=== PATIENT | female | born 1945 | race Hispanic/Latino ===

== ENCOUNTER 2016-10-24 09:07 | Day surgery (SDC) | payer MEDICARE, MEDICAID ==
--- NOTE | 2016-10-23 11:32 | PCM.ANEPRE ---
Anesthesia Pre-Op Review Reason for Review: DM, Anemia Anesthesia Recommendations: Proceed with Procedure Additional Comments 71 y.o female with DM. Per clinic notes appears to be medically optimized. Xu Aguilar DO October 23, 2016 11:32
[2016-10-24] VITALS (15 sets, daily range): BP systolic 91–156; BP diastolic 54–72; PULSE 70–95; RESP 10–18; O2SAT 93–97
[~2016-10-24] VITALS: Ht 152.4 cm; Wt 58.7 kg
[2016-10-24] MEDS: Lactated Ringer's 1,000 ML IV SCH ×3 (05:00→12:46)
[~2016-10-24 09:07] MED LIST: AMLO5TAB2 PO; AMT25T PO; ASPI-628 PO; CHOL200025 PO; CeFAZolin Inj 2 GM in IV Premix 1 EACH IV ONE; GLIP5TAB3 PO; HYDR-4003 PO; LISI40TA PO; LOVA40TA PO; METF10002 PO; Phenazopyridine 97.5 mg Tablet PO ONE; RANI150C4 PO
[2016-10-24] MEDS ORDERED: Furosemide 10 mg/mL 4 mL Inj ONE (09:08)
[2016-10-24] MEDS ORDERED: Propofol 10,000 mCg/mL 20 mL Inj ONE (09:08)
[2016-10-24] MEDS ORDERED: Ondansetron 2 mg/mL 2 mL Inj ONE (09:08)
[2016-10-24] MEDS ORDERED: Phenylephrine 10,000 mCg/mL Inj ONE (09:08)
[2016-10-24] MEDS ORDERED: Phenazopyridine 97.5 mg Tablet ONE (10:15)
[2016-10-24 11:02] LABS: Mean Corpuscular Hemoglobin 27.6 pg (27.0-35.0)
--- NOTE | 2016-10-24 11:22 | PCM.HPANE ---
Patient Data Date of Service: October 24, 2016 Surgeon Admitting Provider: Attending Provider:Yonathan Bailey MD Primary Care Physician:To Other Provider:Sarah Rodriguez Anesthesia Reason for Visit Uterovaginal Prolapse, Cystocele, Rectocele, Incon Ht/WT & BMI Height (Feet): 5 Height (Inches): 0.00 Weight (Kilograms): 58.500 Body Mass Index 25.00 Allergies Coded Allergies: No Known Allergies (Verified , 08/24/12) Past Anesthesia History Anesthesia History: Denies:: Anesthesia Reactions, Fam Anesthesia Reaction, Fam Malignant Hypertherm, Malignant Hyperthermia Diabetes History Hx Diabetes?: Yes Type of Diabetes: Type II Glycemic Control: Oral Medication Current Bedside Blood Glucose: 158 MRSA MRSA: No Medications Blood Thinner: Aspirin Last Dose Blood Thinner: Oct 16, 2016 Hypertension Medication: Yes (Amlodipine, lisinopril) Home Meds Incl Beta Luisana: No Reported Medications Cholecalciferol (Vitamin D3) (Vitamin D3)2,000 Unit Tablet2,000 Unit PO DAILY 10/23/16 Ranitidine 150 Mg [id number] Mg PO BID PRN For Dyspepsia or Heartburn Ref 0 10/23/16 Glipizide ER (Glucotrol XL)5 Mg Tablet5 Mg PO DAILY 10/23/16 Hydrocodone-Acetaminophen 5-325 mg 1 Each Tablet1 Each PO Q4 PRN For Pain Ref 0 06/05/14 Metformin 1,000 Mg Tablet1,000 Mg PO BIDWM 30 Days Ref 0 06/05/14 Aspirin (Aspir 81)81 Mg Tablet.dr81 Mg PO DAILY Ref 0 06/05/14 Amlodipine 5 Mg Tablet5 Mg PO DAILY 30 Days Ref 0 06/05/14 Lisinopril 40 Mg [id number] Mg PO DAILY 30 Days Ref 0 06/05/14 Amitriptyline 25 Mg Tab25 Mg PO HS Ref 0 06/05/14 Lovastatin 40 Mg Tuiqpk25 Mg PO HS #30 TABLET Ref 0 06/05/14 Discontinued Reported Medications Amitriptyline-Expunged Drug, Do Not Renew! 25 Mg Zlsfvz22 Mg PO DAILY 08/25/12 Lisinopril-Expunged Drug, Do Not Renew! 20 Mg Tjzpzw43 Mg PO DAILY 08/25/12 Lovastatin-Expunged Drug, Do Not Renew! 40 Mg Bmvitt03 Mg PO HS 08/25/12 Metformin-Expunged Drug, Do Not Renew! 500 Mg Tablet1,000 Mg PO BIDWM 08/25/12 Discontinued Scripts Sulfamethoxazole/Trimethoprim (Bactrim DS)1 Each Tablet1 Tab PO BID #8 Prov:Jesi Tafoya DO 08/26/12 History History of ENT Problems?: Yes HEENT History: Denies:: Abnormal Airway Difficult Intubation TMJ Denture Type: None Teeth Condition: Missing Teeth (right upper molar, nothing loose) Other HEENT Pertinent History: Diabetic retinopathy Hx of Heart Problems?: Yes Cardiovascular History: Positive for:: Hypertension Denies:: Cardiac Surgery Chest Pain Congestive Heart Failure Edema Heart Murmur Irregular Heartbeat Pacemaker Thrombophlebitis Other Cardiac History: Pt has chronic anemia Hx of Respiratory Problem?: No Respiratory History: Denies:: Asthma COPD Chest Surgery Cough Dyspnea Emphysema Hemoptysis Pneumonia Tuberculosis Hx Neurologic Problems?: Yes Neurological History: Positive for:: Dizziness (today) Headaches Denies:: Alzheimer's Disease CVA Dementia Parkinson's Disease Seizures Other Neurological Pertinent: Diabetic neuropathy in feet, denies any weakness Hx of GI Problems?: Yes Other GI Pertinent History: Constipation; hx of gastritis. Hx of Problems?: Yes Genitourinary History: Positive for:: Urinary Tract Infection Denies:: HX of Hemodialysis Kidney Stones HX of Peritoneal Dialysis: No Other Pertinent History: Cystocele and uterovaginal prolapse. Female Hx: Denies:: Currently Hx Musculoskeletal Problems?: No Musculoskeletal History: Denies:: Back Injury Joint Replacement Musculoskeletal Trauma Hx of Psycho/Social Problems?: Yes Psycho Social History: Positive for:: Hx Depression Denies:: Anxiety Bipolar Disorder Suicide Attempt Hx Surgeries?: Yes (Tubal, c section x2, hernia repair, right leg vein "exploded" (varicose)) Hx Any Other Health Problems?: Yes Other History: Positive for:: Hospitalization (Childbirth) Denies:: Cancer Endocrine Disease Thyroid Disease History Blood Transfusions: Positive for:: Accept Blood Products? Denies:: Blood Transfusions Hx Diabetes: YesBedside Blood Glucose: 158 Hx Alcohol Use: NoHx Substance Use: No Smoking Status: Never Smoker Have You Smoked inLast 12 mo: No Stop/Bang S-Snoring: Do You Snore Loudly: Yes T-Tired: feel tired, fatigued: No O-Obsered: Observed not breath: No P-Blood Pressure: treated: Yes B- Body Mass Index > 35 kg/m2: No A- Age over 50: Yes N- Neck Large Circumference: No G- Gender Male: No ROXANN Total Score: 3 ROXANN Risk Assessment: High Risk, =/>3 Yes ROXANN Category 4 OutPt Procedure: Yes Risk Assessment Category Category 1A: Patient has history of documented sleep apnea, and HAS NOT received any narcotic, sedative or anesthesia administration during this stay. Category 1B: Patient has history of documented sleep apnea, and HAS received any narcotic , sedative or anesthesia administration during this stay Category 2: Patient has SUSPECTED Obstructive Sleep Apnea, and HAS received any narcotic , sedative or anesthesia administration during this stay. Category 3: Patient has SUSPECTED Obstructive Sleep Apnea and HAS NOT received narcotic, sedative or anesthesia administration during this stay. Category 4: Outpatient in Procedural Areas with known sleep apnea or who screen positive for High Risk via the STOP/BANG questionnaire. Exam Exam Vital Signs Vital Signs Date Time Temp Pulse Resp B/P Pulse Ox O2 Delivery O2 Flow Rate FiO2 10/24/16 09:38 36.3 81 16 156/63 97 Room Air General Appearance: Alert, Oriented X3, Cooperative, No Acute Distress HEENT/AIRWAY: MP 2, Neck Movement (from), Other (tmd 3 fb) Lungs: Clear to Auscultation, Normal Air Movement Heart: Exam Unremarkable, Regular Rate/Rhythm, No Murmurs/Rubs/Gallops Meds/Labs/Diagnostics Admission Meds Current Medications Lactated Ringer's (Lr) 1,000 ml @ 120 mls/hr Q8H20M IV Last administered on t 10:36; Start 10/24/16 at 05:00; Stop 10/24/16 at 13:19 Bedside Blood Glucose: 158 Labs Test 10/24/16 10:45 White Blood Count 5.6th/mm3 (3.8-10.1) Red Blood Count 4.09mil/mm3 (3.90-5.20) Hemoglobin 11.3g/dL (12.0-15.6) Hematocrit 35.6% (35.0-46.0) Mean Corpuscular Volume 87.0fL (81-100) Mean Corpuscular Hemoglobin 27.6pg (27.0-35.0) Mean Corpuscular Hemoglobin Concent 31.7% (32.0-37.0) Red Cell Distribution Width 13.4% (12.3-15.4) Platelet Count 319bil/L (150-400) Sodium Level 136mEq/L (134-144) Potassium Level 4.6mEq/L (3.5-5.2) Chloride Level 97mEq/L (97-108) Carbon Dioxide Level 26mmol/L (18-29) Blood Urea Nitrogen 19mg/dL (8-27) Creatinine 1.07mg/dL (0.57-1.00) Estimat Glomerular Filtration Rate 73mL/min (>59) Glucose Level 176mg/dL (60-99) Calcium Level 8.5mg/dL (8.5-10.1) Plan Impression Patient chart reviewed, patient interviewed and anesthestic plan with risks, benefits, and alternatives discussed, and informed consent obtained. NPO per Anesth. Guidelines: Yes ASA Physical Status: ASA2 Mod Systemic Disease Anesthetic Plan: GA, SAB (with intrathecal morphine for postop analgesia) Bene/Risks/Altern/Consents: Yes HP Complete Prior to Induction: Yes Scout Celeste MD October 24, 2016 11:22
[2016-10-24] MEDS ORDERED: Morphine PF 1 mg/mL 10 mL Inj ONE (11:59)
[2016-10-24] MEDS ORDERED: Lactated Ringer's 1,000 ML IV SCH (12:41)
[2016-10-24] MEDS ORDERED: Lactated Ringer's 500 ML IV PRN (12:41)
[2016-10-24] MEDS ORDERED: Labetalol 5 mg/mL 4 mL Inj IV PRN (12:45)
[2016-10-24] MEDS ORDERED: fentaNYL-PF 50 mCg/mL 2 mL Inj IVPUSH PRN (12:45)
[2016-10-24] MEDS ORDERED: hydrOXYzine Inj 50 MG/1 mL SDV IM PRN (12:45)
[2016-10-24] MEDS ORDERED: Phenylephrine 10,000 mCg/mL Inj IVPUSH PRN (12:45)
[2016-10-24] MEDS ORDERED: EPHEDrine Sulfate 50 mg/mL Inj IVPUSH PRN (12:45)
[2016-10-24] MEDS ORDERED: HYDROmorphone 1 mg/mL Inj IVPUSH PRN (12:45)
[2016-10-24] MEDS ORDERED: hydrALAZINE 20 mg/mL Inj IVPUSH PRN (12:45)
[2016-10-24] MEDS ORDERED: Atropine 0.4 mg/mL Inj IVPUSH PRN (12:45)
[2016-10-24] MEDS ORDERED: EPHEDrine Sulfate 50 mg/mL Inj IM PRN (12:45)
[2016-10-24] MEDS ORDERED: MetoCLOpramide 5 mg/mL 2 mL Inj IVPUSH PRN (12:45)
[2016-10-24] MEDS ORDERED: Ondansetron 2 mg/mL 2 mL Inj IVPUSH PRN ×2 (12:45→16:25)
[2016-10-24] MEDS ORDERED: Lactated Ringer's 1,000 ML IV ONE (15:57)
[2016-10-24] MEDS ORDERED: Alum-Mag Hydrox-Simeth 30 mL Suspension PO PRN (16:25)
[2016-10-24] MEDS ORDERED: diphenhydrAMINE 25 mg Capsule PO PRN (16:25)
[2016-10-24] MEDS ORDERED: Ketorolac 15 mg/mL Inj IVPUSH PRN (16:25)
[2016-10-24] MEDS ORDERED: Acetaminophen IV 1,000 MG in IV Premix 1 EACH IV SCH (16:25)
[2016-10-24] MEDS ORDERED: Non-Formulary Medication (Ranitidine 150 MG) PO PRN (16:30)
[2016-10-24 17:05] LABS: APPEARANCE,URINE CLEAR (CLEAR,HAZY); COLOR,URINE YELLOW (YELLOW); OCCULT BLOOD,URINE NEGATIVE (NEGATIVE); PH,URINE 7.5 (5.0-8.0); UROBILINOGEN,URINE NORMAL (NORMAL)
--- NOTE | 2016-10-24 18:57 | NUR ---
Post op note- Patient arrived to [facility] at 1835 from PACU. Sedated, but opens eyes with stimuli. Denies pain and nausea. Wiley cath draining orange urine. Dressing at pubis is dry and intact. O2 on at 3 liters-Spo2 93-94%. Oriented to room, call light,etc. Family at bedside.
[2016-10-24] MEDS: MetoCLOpramide 5 mg/mL 2 mL Inj IVPUSH PRN (19:28)
[2016-10-24] MEDS: 0.9% Sodium Chloride 1,000 ML IV SCH (20:03)
[2016-10-24] MEDS: Insulin Human REGular 300 Unit/3 mL Inj SUBQ SCH (21:22)
--- NOTE | 2016-10-24 22:52 | PCM.ANEP1 ---
Post Anesthesia Phase 1 PACU Phase 1 Assessment Date of Service: October 24, 2016 Vital Signs Vital Signs Date Time Temp Pulse Resp B/P Pulse Ox O2 Delivery O2 Flow Rate FiO2 10/24/16 20:15 Supplement Oxygen 10/24/16 19:43 72 95 10/24/16 18:39 Supplement Oxygen 10/24/16 18:32 36.6 73 16 130/72 93 Nasal Cannula 3.00 10/24/16 18:03 11 94 10/24/16 18:00 36.2 80 11 121/60 94 Nasal Cannula 3 10/24/16 17:45 76 10 109/64 95 Nasal Cannula 3 10/24/16 17:30 76 10 104/57 95 Nasal Cannula 3 10/24/16 17:15 77 10 105/61 95 Nasal Cannula 3 10/24/16 17:00 35.8 76 10 114/57 95 Nasal Cannula 3 10/24/16 16:45 89 10 107/61 96 Simple Mask 8 10/24/16 16:40 90 10 91/57 96 Simple Mask 8 10/24/16 16:35 93 12 96/58 95 Simple Mask 8 10/24/16 16:30 94 12 106/56 93 Simple Mask 8 10/24/16 16:25 36.1 95 12 111/63 94 Simple Mask 8 Anesthetic Administered: GA Level of Alertness: Sleepy, easy to arouse ALEXIS's with Equal Strength: Yes Pain: No Nausea or Vomiting: No Oxygen Delivery: Nasal Cannula Lungs: Clear to Auscultation, Normal Air Movement Dermatome Level: Full Sensation Summary Patient sleepy in PACU but arousable. Able to take deep breaths and cough. Complications: No Follow up Care: No Patient Instructions Provided: Yes Scout Celeste MD October 24, 2016 22:52
--- NOTE | 2016-10-24 23:09 | PCM.SURGOP ---
Surgical Operative Report Date of Service: October 24, 2016 Pre Operative Diagnosis 1. Uterovaginal prolapse, incomplete N81.2 (618.2): 2. Cystocele and rectocele 3. Stress incontinence in female N39.3 (625.6): Intrinsic sphincter deficiency Post Operative Diagnosis 1. POPQ stage 2 Uterine prolapse, 2. POPQ stage 2 Cystocele and rectocele; deficient pubovesical fascia 3. Stress incontinence in female; Intrinsic sphincter deficiency Procedure: 1. vaginal hysterectomy with Left Salpingoophorectomy. 2. anterior repair with Xenform biologic graft augmentation. 3. posterior repair 4. high uterosacral ligament vaginal vault suspension, cystoscopy and enterocele repair 5. TVT retropubic sling and cystoscopy Surgeon and Historical Guide: Surgeon: Yonathan Bailey MD Assistants: Varinder Dixon MD Indication for Procedure Her assessment to date includes: 1. Uterovaginal prolapse, incomplete N81.2 (618.2): 2. Vaginal atrophy N95.2 (627.3): 3. Stress incontinence in female N39.3 (625.6): The patient is not interested in a pessary. The patient is a candidate for surgical prolapse management in the form of vaginal hysterectomy with possible BSO, anterior repair with possible biologic graft augmentation, posterior repair, high uterosacral ligament vaginal vault suspension, enterocele repair, and TVT retropubic sling. She has been granted medical/cardiac clearance (refer to letter from her GP). The patient signed the consent form. She agreed with the risks, benefits, and alternatives to surgery. The risks included but not limited to recurrence or persistence of prolapse, recurrence of persistence of incontinence, development of voiding dysfunction, development of urinary urgency, urgency incontinence, frequency, and need for intermittent self-catheterization or prolonged indwelling catheterization, injury to other organs including bladder, bowel, nerves or blood vessels. Need for blood transfusion, need for temporary colostomy or urinary stenting. Development of vaginal scarring, dyspareunia, defecatory dysfunction, recurring pain, hematoma formation, urinary tract infection, cellulitis, necrotizing fascitis, and medical risks including myocardial infarction, stroke or VTE. She also understood the FDA warnings associated with the use of vaginal mesh (dysparunia, vaginal erosion, erosion into bowel/bladder/urethra, requiring further surgery to correct these complications). The patient understood the risks and benefits and consented to surgery. This was done with a public policy professor, our SADIE Norah. Findings: see dictation Procedure Details SURGICAL TECHNIQUE: The patient was brought to the operating room and was placed under general anesthesia. She was prepped and draped in the normal fashion for vaginal surgery with the legs in Yellofin stirrups. She was given a dose of IV ancef intraoperatively. She received 200 mg of oral pyridium 30 min prior to surgery. 1. Vaginal Hysterectomy and left salpingoophorectomy: Lidocaine 0.5% with 1:200 ,000 of epinephrine was infiltrated pericervically. A pericervical incision was made with a scalpel. Anteriorly, the bladder was sharply dissected off the cervix. Posteriorly, the cul de sac was entered with Sharp dissection. The bowels were packed with a mini-laparotomy sponge. The uterosacral ligaments were bilaterally clamped, divided and then tied in a transfixion fashion with 0-vicryl suture. Anteriorly, the Uterovesical peritoneum was entered with sharp dissection and the bladder was retracted upward with a right-angle retractor. The uterine vessels were then coagulated, and ligated using the Ligasure Impact System. The uterine body was delivered posteriorly. The utero-ovarian ligaments were clamped bilaterally, coagulated, ligatated and then tied using 0-Vicryl suture. The ovaries and tubes appeared normal. Next we proceeded with Salpingoophorectomy. The left ovary and tube were grasped with Any clamp. A hysterectomy Clamp was placed along the vascular base. This was coagulated, then ligated with Ligasure Impact. The Pedicle was then tied using 0-vicryl suture. The right tube and ovary appeared normal but were located deep in the pelvis. Therefore we decided to leave them in situ. The uterus/cervix, left tube and ovary were sent to pathology. It was noted that the pedicles and cuff were hemostatic after some cauterization. 2. High uterosacral ligament vaginal vault suspension, cystoscopy and enterocele repair: Mini laparotomy sponges were packed to retract the bowel upwards. A pair of Allis clamps were placed along the intraperitoneal portions of the vagina at the 5 and 7 o'clock positions. Tension along these Allis clamps allowed for identification of the uterosacral ligaments bilaterally. Also , the ureters were carefully palpated to avoid them. A pair of 0 Vicryl sutures were passed around the uterosacral ligaments of the level of the ischial spine bilaterally, totalling 4. Cystoscopy was performed while placing tension on the vault suspension sutures. The bladder was filled with 200 ml of D50 solution as the pyridium had not yet concentrated in the urine. Spillage of urine was noted bilaterally. The bladder was irrigated and rinsed with sterile saline. Next, a two 3-0 Prolene sutures were placed transversely through the cul-de-sac peritoneum. This was performed while using a gloved finger in the rectum as to avoid penetrating the underlying rectal mucosa. Tying these sutures obliterated the enterocele. 3. Anterior colporrhaphy with Xenform graft augmentation: Lidocaine 0.5% with 1 /55706 epinephrine was infiltrated along the anterior vaginal wall mucosa. A midline vertical incision was made through the anterior vaginal wall. The vaginal wall was dissected off the underlying pubocervical and pubovesical fascia. The dissection was extended laterally beyond the ischial pubic rami. It was noted that the pubocervical and pubovesical fascial tissues were deficient and thin. Bilateral paravaginal defects were noted. The cystocele was plicated in 2 layers, the first layer with 2-0 Vicryl suture in interrupted fashion, the second layer with 2-0 Tycron suture in an interrupted fashion. A trapezoidal piece of Xenform graft was then incorporated atop the plicated area far laterally. The graft was secured to the obturator internus membrane. At the level of the bladder neck, an upside down triangular piece of graft was excised so that there was no over-support created along the level of the bladder neck. Apically , the graft was passed through the proximal uterosacral ligament sutures. A small amount of excess anterior vaginal mucosa was excised. The vault suspension sutures were then passed through the planned apex of the vagina. Two were placed through the anterior apex and the other two, through the posterior apex. The vagina was then reapproximated using 3-0 Vicryl suture in a running-locked fashion. The high uterosacral ligament vaginal vault suspension sutures were tied and this elevated the apex of the vagina high up into the hollow of the sacrum. 4. Posterior colpoperineorrhaphy: A POPQ stage 2 rectocele was noted when a digital rectal exam was performed. Lidocaine 0.5% with 1:200,000 of epinephrine was infiltrated along the posterior vaginal wall mucosa. No wedge of perineum was needed to be excised. A Midline vertical incision was made through the posterior vagina with a scalpel. The vaginal mucosa was dissected off the underlying rectovaginal tissues. It was noted the fascial tissues were sufficient. The rectocele was plicated in a single layer using 2-0 Vicryl suture in an interrupted fashion. A small amount of excess posterior vaginal mucosa was excised. The vagina was reapproximated using 2-0 Vicryl suture in a running-locked fashion. The skin was reapproximated using 3-0 Vicryl suture in a subcuticular fashion. 5. Tension-free vaginal tape retropubic sling and cystoscopy: Lidocaine 0.5% with epinephrine was infiltrated along the anterior vaginal wall mucosa at the level of the mid urethra. A midline vertical incision was made at the level of the scalpel. Metzenbaums were used to create 2 periurethral tunnels. Two stab incisions were created along the suprapubic regions. Catheter guidewire was inserted into the Varghese catheter. Using the TVT needle attached to its handle, the needle was inserted into the right periurethral tunnel. The point was initially directed towards the ipsilateral shoulder. Once it pierced the urogenital diaphragm it was then directed medially. During passage of the needle we insured that the needle was hugging snugly against the pubic bone until the needle is a bit through the ipsilateral skin incision. Varghese catheter was removed. Cystoscopy assured that there was no inadvertent penetration of the needle through the dome of the bladder or periurethrally. Procedure was performed on the contralateral side. Again, cystoscopic evaluation revealed that there was no penetration of the sling into the urethra or bladder on the contralateral side. Urine was noted to be effluxing at both ureteric orifices. The bladder was filled with 300 cc of fluid. Plastic sheaths and the sling were removed. The Crede maneuver was used to carefully adjust sling tension. Also a large right angle clamp was allowed to easily pass behind the sling so that the sling was placed in a tension-free manner. Sling ends were cut level to the skin. The skin is reapproximated using Mastisol solution, Steri-Strips and Band-Aids. The vagina is reapproximated using 3-0 Vicryl suture in a running fashion. The vagina was packed with Premarin-lubricated packing. The 16F indwelling varghese catheter was connected to straight drainage. The patient's hips were periodically deflexed during the case. There were no complications. The EBL was 150 ml. All sponges and instruments were accounted for. She was taken to the recovery room in stable condition. Complications There were no periprocedural complications identified. Surgical Specimen Removed: Yes Specimen sent to Pathology: Yes Surgical Specimen description: uterus, cervix, left tube/ovary Anesthetic Plan: GA, SAB (with intrathecal morphine for postop analgesia) Grafts, Implants: Grafts-See Implant Record, Implants-See Implant Record Output, Estimated Blood Loss: 150 (ml EBL) Blood Administration during corado: No Drains: None Catheters: Urethral 2 Way Varghese Post Operative Plan overnight stay in bed for observation as she requires a voiding trial in the am copies to: Varinder Dixon MD; Yonathan Bailey MD, William Andre Z MD October 24, 2016 23:09
[2016-10-25] MEDS: Insulin Human REGular 300 Unit/3 mL Inj SUBQ SCH ×3 (01:59→14:49)
[2016-10-25] MEDS: 0.9% Sodium Chloride 1,000 ML IV SCH ×3 (04:14→16:14)
--- NOTE | 2016-10-25 04:17 | NUR ---
Meds/Emesis Patient noted to have small episode of emesis at beginning of shift. Received Reglan IVP with effective results. No further episodes of N/V. Patient refusing PO medications in relation to earlier upset stomach. Metformin held per MD orders, as she is not "eating well" at this time. Tolerating clear liquids w/o issue. Refusing any pain or discomfort this shift so far. Family at bedside. Using custom feed corn operator for assessments and patient needs.
[2016-10-25 05:45] VITALS: BP 122/63; PULSE 71; RESP 16; O2SAT 97
[2016-10-25 05:50] LABS: BASOPHILS % (AUTO) 0 % (0-3); EOSINOPHILS % (AUTO) 0 % (0-5); MONOCYTES % (AUTO) 8.2 % (4-12); Mean Corpuscular Hemoglobin 27.9 pg (27.0-35.0); Mean Corpuscular Volume 87.6 fL (81-100); NEUTROPHILS % (AUTO) 81.1 % (40-74); Platelet Count 255 bil/L (150-400)
[2016-10-25 07:56] VITALS: BP 137/69; PULSE 84; RESP 18; O2SAT 95
[2016-10-25] MEDS: oxyCODONE-Acetamin 5-325 mg Tablet PO PRN ×3 (08:11→17:13)
[2016-10-25] MEDS ORDERED: Senna-Docusate 8.6-50 mg Tablet PO SCH (08:30)
[2016-10-25] MEDS ORDERED: GLIPIZIDE 5 MG PO SCH (08:30)
[2016-10-25] MEDS ORDERED: Heparin 5,000 Unit/mL Inj SUBQ SCH (08:30)
[2016-10-25] MEDS: MetoCLOpramide 5 mg/mL 2 mL Inj IVPUSH PRN (09:23)
[2016-10-25 11:55] VITALS: BP 152/70; PULSE 82; RESP 18; O2SAT 95
--- NOTE | 2016-10-25 12:14 | PCM.DIGYN ---
Surgical Discharge Instruction Dates of Hospitalization Date of Hospital Admission 10/24/16 outpatient in bed Providers Admitting Physician: Primary Care Physician: Nopcp Attending Physician: Yonathan Bailey MD Diagnosis at Time of Discharge Diagnosis at time of discharge 1. POPQ stage 2 Uterine prolapse, 2. POPQ stage 2 Cystocele and rectocele; deficient pubovesical fascia 3. Stress incontinence in female; Intrinsic sphincter deficiency 4. Iron deficiency anemia secondary to acute blood loss Post-operative diagnosis 1. POPQ stage 2 Uterine prolapse, 2. POPQ stage 2 Cystocele and rectocele; deficient pubovesical fascia 3. Stress incontinence in female; Intrinsic sphincter deficiency Problems: Diet Discharge Diet: Diabetic Activity Discharge Activity-General: Restrict lifting to no greater than (10 lbs for 6 wk) Dressing and Incisional Care Dressing Care: Allow Steri Stripes to fall off Hygiene: May shower Follow Up Plan Follow-up appointment: Weeks (2; also see my MA in 1 wk if home with varghese) Call your provider for: Fever, Chills, Shortness of breath, Vomitting, Drainage at incision, Heavy vaginal bleeding, Wound redness, Increasing pain Yonathan Bailey MD October 25, 2016 12:14
--- NOTE | 2016-10-25 12:19 | PCM.PNSURG ---
Subjective Date of Service: October 25, 2016 Date of Service: October 25, 2016 Visit Information: Reason for Visit Uterovaginal Prolapse, Cystocele, Rectocele, Incon Surgery/Surgery Date ANTERIOR/POSTERIOR REPAIR 10/24/16 Post-Op Day # 1 Subjective: AVSS some nausea earlier tolerating po now after anti-nauseants oral analgesics now; required some IV pain meds this am OR explained mild anemia, asymptomatic ambulated Objective Vital Sign- Last 8 Hours Date Time Temp Pulse Resp B/P Pulse Ox O2 Delivery O2 Flow Rate FiO2 10/25/16 11:55 36.7 82 18 152/70 95 Room Air 10/25/16 07:56 36.6 84 18 137/69 95 Nasal Cannula 1.00 10/25/16 05:45 37.1 71 16 122/63 97 Nasal Cannula 3.00 Intake and Output- Last 8 Hour 10/25/16 Cumulative From/Thru 07:00 10/23/16 10:34 - 10/25/16 05:45 Intake Total 1243 ml 2893 ml Output Total 150 ml 800 ml Balance 1093 ml 2093 ml Intake IV Total 1243 ml 2893 ml Output Urine Total 500 ml Estimated Blood Loss 150 ml 300 ml General: Alert, Oriented X3, Cooperative Lungs: Clear to Auscultation Abdomen: Benign Catheters: Urethral 2 Way Wiley Result Diagram: 10/25/16 0531 10/24/16 1045 Assessment & Plan Impression iron deficiency anemia secondary to acute blood loss stable POD#1 Problems: Plan start po iron once BM's established voiding trial at 10 am d/c later today once stable repeat H&H at 12 pm copies to: Yonathan Bailey MD, William Andre Z MD October 25, 2016 12:19
--- NOTE | 2016-10-25 13:27 | NUR ---
Varghese After pt was ambulatory 300cc of sterile water was placed in the catheter and catheter was d/c'd. Pt was unable to void after 30 min trial. Varghese catheter was re-inserted and plugged. Pt teaching done on catheter care. Family at bedside to translate. Will continue to monitor. Addendum: 10/25/16 at 1731 by ROE LANIER RN Vaginal packing was d/c'd prior to varghese removal.
--- NOTE | 2016-10-25 13:40 | NUR ---
Pain Pt rated pain 8/10 this morning. Pt denied any nausea, tolerating clears and jello. Pt took morning medications with oral pain medication with crackers and water. Pt then c/o nausea and had an episode of emesis. Pt stated after her episode the nausea decreased. Gave pt a dose of reglan and IV pain medication. This afternoon pain was 10/10 again and pt is tolerating her diet with no nausea, and was able to take po pain medication. Pt now rates pain at 0/10 and has no c/o nasuea. Will continue to monitor.
[2016-10-25 16:42] VITALS: BP 152/64; PULSE 79; RESP 18; O2SAT 95
--- NOTE | 2016-10-25 17:31 | NUR ---
Dishcharge Pt was dishcarged from room 1030 at 1730 via private vehicle home with family. All dishcarge teaching and instructions were done with an american sign language interpreter and all questions and concerns addressed. IV d/c'd intact. No items in the safe or the pharmacy. Hard copy of the RX with pt. Pt to f/u with Dr. Bailey's office in 1 week. Pt has apt already set up.
--- NOTE | 2016-10-29 14:29 | PATH ---
SURGICAL PATHOLOGY Attending Physician:Yonathan Bailey, CASE STATUS: Signed Out PATIENT NAME: IMER RODRIGUEZ PID: [id number] : 1945 DATE COLLECTED:10/24/2016 00:00 SPECIMEN: Uterus +/- tubes/ovaries, except neoplastic, prolapse CLINICAL HISTORY: UTEROVAGINAL PROLAPSE 1). UTERUS & LEFT OVARY & TUBE FINAL DIAGNOSIS: 1.UTERUS WITH LEFT OVARY AND FALLOPIAN TUBE (CLINICAL PROLAPSE): MINIMALLY PROLIFERATIVE ENDOMETRIUM WITH DISORDERED ARCHITECTURE AND FOCAL AREAS OF ADENOMYOSIS. MULTIPLE SMALL SIMPLE EPITHELIAL CYSTS, OVARY. FALLOPIAN TUBE UNREMARKABLE. ICD10 CODE N81.4 GROSS DESCRIPTION: Specimen received in formalin, labeled "uterus and left ovary and tubes", specimen consists of a 70.4 gram hysterectomy specimen measuring 9.0 cm superior to inferior, 4.5 cm lateral to medial, and 3.5 cm anterior to posterior. The exocervix measures 4.3 x 3.2 cm. The os measures 1.0 cm and it is slit-like. The cervix is covered by a sandoval-white, smooth, glistening mucosa. Endocervical cavity measures 2.5 cm in length and it has a herringbone mucosal surface and partially sclerotic endometrial lining measuring 2.3 cm cornu to cornu and 4.5 cm in length covered by a red-jiménez endometrial lining measuring 0.2 to 0.3 cm in maximum thickness. The myometrium measures 1.5 cm in maximum thickness. Serosal surface is sandoval to white with multiple fine adhesions on the anterior aspect and it is smooth, glistening, and unremarkable at the posterior aspect of the specimen. Received also in the same container is an ovarian structure with attached fallopian tube. The ovary measures 1.8 x 1.2 x 0.5 cm and the attached fimbriated fallopian tube measuring 0.3 m in length by 0.7 cm in diameter. The cut surface of the ovary is white to pale jiménez, solid and homogeneous. Soil Science Teacher sections submitted as follows: cassette A-anterior cervix; B-anterior lower uterine segment; C-anterior uterine wall full thickness; D-anterior uterine wall full thickness; cassette E-posterior cervix; cassette F-posterior lower uterine segment; cassette G and F-posterior uterine wall full thickness; cassettes I and J-the entire ovarian structure; cassettes K and L-the entire fallopian tube. ([id number]) MICRO DESCRIPTION: See diagnosis. ICD-9 CODES: CPT CODES: 67785 Electronically Signed Out Pineda Penn MD [facility] [address], [place] [address] Technical component performed at [facility], [facility] [address], [place], [address]
== END 2016-10-25 17:22 | disposition home or self-care (01) ==
LOC: SAS 09:07 → OSC 18:28 → SAS 10-25 17:22
PROVIDERS: ATTEND Obstetrics & Gynecology
DX: N81.2 Incomplete uterovaginal prolapse (principal); N81.6 Rectocele; N95.2 Postmenopausal atrophic vaginitis; N39.3 Stress incontinence (female) (male); G89.18 Other acute postprocedural pain; I10 Essential (primary) hypertension; E11.40 Type 2 diabetes mellitus with diabetic neuropathy, unspecified; I25.10 Atherosclerotic heart disease of native coronary artery without angina pectoris; D63.8 Anemia in other chronic diseases classified elsewhere; E78.5 Hyperlipidemia, unspecified; F32.9 Major depressive disorder, single episode, unspecified; N28.9 Disorder of kidney and ureter, unspecified; Z87.440 Personal history of urinary (tract) infections; Z79.82 Long term (current) use of aspirin; Z79.84 Long term (current) use of oral hypoglycemic drugs
CPT/HCPCS: 36415; 57265; 57267; 57283; 57288; 58262; 80048; 81000; 83036; 85014; 85018; 85025; 85027; 86850; 96374; 96375; C1763; C1771; J0690; J1644; J1815; J1885; J1940; J2250; J2270; J2274; J2370; J2405; J2765; J7030; J7120

== ENCOUNTER 2016-11-02 18:53 | Inpatient (IN) | payer MEDICARE, MEDICAID ==
[~2016-11-02] VITALS: Ht 152.4 cm; Wt 57.3 kg
[~2016-11-02 18:53] MED LIST changes: -CeFAZolin Inj 2 GM in IV Premix 1 EACH IV ONE; -Phenazopyridine 97.5 mg Tablet PO ONE
[2016-11-02 20:02] LABS: BASOPHILS % (AUTO) 0.3 % (0-3); EOSINOPHILS % (AUTO) 3.1 % (0-5); MONOCYTES % (AUTO) 7.1 % (4-12); Mean Corpuscular Hemoglobin 27.9 pg (27.0-35.0); Mean Corpuscular Volume 85.5 fL (81-100); NEUTROPHILS % (AUTO) 73.3 % (40-74); Platelet Count 392 bil/L (150-400)
[2016-11-02 20:32] LABS: Magnesium 1.8 mg/dL (1.6-2.6)
[2016-11-02] MEDS ORDERED: 0.9% Sodium Chloride 1,000 ML IV ONE (20:50)
[2016-11-02] MEDS ORDERED: Piperacillin-Tazo 3.375 Gm Inj 3.375 GM in Dextrose 5% Minibag Plus 50 ML IV ONE (21:20)
[2016-11-02 21:38] LABS: APPEARANCE,URINE SLIGHTLY CLOUDY (CLEAR,HAZY); COLOR,URINE YELLOW (YELLOW); OCCULT BLOOD,URINE SMALL (NEGATIVE); UROBILINOGEN,URINE NORMAL (NORMAL)
--- NOTE | 2016-11-02 21:51 | ED.REPORT ---
HPI-Fever Date of Service November 02, 2016 ED Provider: Oracio Mason DO A 71 year old female with a medical history including diabetes, hypertension, uterovaginal prolapse, rectocele, and cystocele s/p recent surgical repair () presents to the ED accompanied by her daughters with shaking chills onset two days ago. The patient denies nausea, vomiting, cough, fever, or other symptoms. She presents with a catheter in place after her recent surgery. The patient speaks Lao and a remote staff command and control officer was used. Nursing Notes Stated Complaint: SHAKING AND CHILLS Chief Complaint: Female Abdominal Pain Nursing Notes Reviewed: Yes Allergies: Coded Allergies: No Known Allergies (Verified , 08/24/12) Scheduled Amitriptyline (Amitriptyline) 25 Mg Tab 25 MG PO HS Amlodipine (Amlodipine) 5 Mg Tablet 5 MG PO QAM Aspirin Chew (Aspirin Chew) 81 Mg Chew 81 MG PO QAM Cholecalciferol (Vitamin D3) (Vitamin D3) 2,000 Unit Tablet 2,000 UNIT PO QAM Glipizide ER (Glucotrol XL) 5 Mg Tablet 5 MG PO DAILYWM Lisinopril (Lisinopril) 40 Mg Tablet 40 MG PO QAM Metformin (Glucophage) 1,000 Mg Tablet 1,000 MG PO BIDWM Nitrofurantoin Monohyd/M-Cryst (MacroBid) 100 Mg Capsule 100 MG PO DAILY Scheduled PRN Ibuprofen (Ibuprofen) 200 Mg Capsule 200-400 MG PO QID PRN PRN For Pain Ranitidine (Ranitidine) 150 Mg Capsule 150 MG PO BID PRN PRN For Dyspepsia or Heartburn oxyCODONE-Acetaminophen 5-325 mg (oxyCODONE-Acetaminophen 5-325 mg) 1 Each Tablet 1 TAB PO Q4H PRN PRN For Pain Miscellaneous Medications Lovastatin (Lovastatin) 40 Mg Tablet 40 MG PO General Time Seen by MD: 20:49 Chief Complaint Shaking chills Hx Obtained From: Patient, Daughter Arrived By: Walk-in Onset Occurred: 2 days ago Symptom Duration: Since onset Severity: Current: No pain currently Severity: Maximum: No pain Pertinent Negative: Relieved by nothing Related History: Reports: Indwelling Wiley Context: Immunization Status Immunizations Up to Date: Tetanus within 5-10 years Recent Healthcare: Recent doctor visit, Previous surgery Past Medical History Past Medical History Diabetes Hypertension Peripheral neuropathy Uterovaginal prolapse Cystocele and rectocele s/p anterior repair with Xenform biologic graft augmentation and posterior repair Reports: Diabetes mellitus Past Surgical History Hernia repair, left leg vein repair Vaginal hysterectomy with Left Salpingoophorectomy. High uterosacral ligament vaginal vault suspension, cystoscopy and enterocele repair TVT retropubic sling and cystoscopy Reports: (x2), Hysterectomy Reports: Tubal ligation Family History noncontributory Smoking History Never Smoker Social History Alcohol Use: Denies alcohol use Drug Use: Denies drug use Other Social History: Ambulatory Status Independent Review of Systems Constitutional: Reports: Chills, Denies: Fever Respiratory: Denies: Non-productive cough, Shortness of breath GI: Denies: Nausea, Vomiting Neurologic: Reports: Shaking Complete sys rev & neg: except as marked. Physical Exam Physical Exam Notes: Initial Vital Signs Vital Signs (First) Date Time Temp Pulse Resp B/P Pulse Ox O2 Delivery O2 Flow Rate FiO2 11/02/16 23:11 85 23 131/59 97 Room Air Initial VS: Reviewed Head / Eyes: Atraumatic, Normocephalic ENT: Conjunctiva normal, No scleral icterus Psychiatric: Mood/affect normal, Behavior normal, Normal thought content General/Constitutional: Awake, Alert Neck: Supple, Full range of motion Respiratory / Chest: Breath sounds NL, Breath sounds = bilat, No respiratory distress Cardiovascular: Regular rhythm, Heart sounds NL Heart Rate / Rhythm: Positive: Tachycardia Skin: Warm, Dry Interpretation & Diagnostics INFLUENZA NEGATIVE URINE DIPSTICK: Bedside Urine Specific [place] * 1.010 Bedside Urine pH * 5 Bedside Urine Leukocyte Esterase * + Bedside Urine Nitrite * Positive Bedside Urine Protein * Trace Bedside Urine Glucose * 1000mg/dl Bedside Urine Ketones * Negative Bedside Urine Urobilinogen * Normal Bedside Urine Bilirubin * Negative Bedside Urine Occult Blood * ~50 Mohit/ml Urine to Lab * Yes Lab Results Interpretation Result Diagram: 11/02/16195311/02/161953 Test 11/02/16 19:54 11/02/16 21:13 White Blood Count 10.7th/mm3 (3.8-10.1) Red Blood Count 3.73mil/mm3 (3.90-5.20) Hemoglobin 10.4g/dL (12.0-15.6) Hematocrit 31.9% (35.0-46.0) Mean Corpuscular Volume 85.5fL (81-100) Mean Corpuscular Hemoglobin 27.9pg (27.0-35.0) Mean Corpuscular Hemoglobin Concent 32.6% (32.0-37.0) Red Cell Distribution Width 13.0% (12.3-15.4) Platelet Count 392bil/L (150-400) Neutrophils (%) (Auto) 73.3% (40-74) Lymphocytes (%) (Auto) 15.8% (14-46) Monocytes (%) (Auto) 7.1% (4-12) Eosinophils (%) (Auto) 3.1% (0-5) Basophils (%) (Auto) 0.3% (0-3) Sodium Level 139mEq/L (134-144) Potassium Level 4.3mEq/L (3.5-5.2) Chloride Level 100mEq/L (97-108) Carbon Dioxide Level 22mmol/L (18-29) Blood Urea Nitrogen 26mg/dL (8-27) Creatinine 1.25mg/dL (0.57-1.00) Estimat Glomerular Filtration Rate 61mL/min (>59) Glucose Level 366mg/dL (60-99) Calcium Level 8.8mg/dL (8.5-10.1) Magnesium Level 1.8mg/dL (1.6-2.6) Total Bilirubin 0.2mg/dL (0.0-1.2) Aspartate Amino Transf (AST/SGOT) 15U/L (0-50) Alanine Aminotransferase (ALT/SGPT) 14U/L (0-32) Alkaline Phosphatase 92U/L (25-165) Total Protein 7.5g/dL (6.4-8.4) Albumin 4.0g/dL (3.4-5.0) Lipase 48U/L (13-60) Procalcitonin 0.07ng/mL (0.00-0.08) Urine Color Yellow (YELLOW) Urine Appearance Slightly cloudy Urine pH 6.0 (5.0-8.0) Urine Specific [place] 1.028 (1.003-1.035) Urine Protein Tracemg/dL (NEG,TRACE) Urine Glucose (UA) >1000mg/dL (NEGATIVE) Urine Ketones Negativemg/dL (NEGATIVE) Urine Occult Blood Small (NEGATIVE) Urine Nitrite Positive (NEGATIVE) Urine Bilirubin Negative (NEGATIVE) Urine Urobilinogen Normalmg/dL (NORMAL) Urine Leukocyte Esterase Small (NEGATIVE) Urine RBC 3-10/hpf (0-2) Urine WBC >50/hpf (0-5) Urine Epithelial Cells Occasional/hpf (NONE-MOD) Urine Crystals None seen (NONE SEEN) Urine Bacteria Many/hpf (NONE-FEW) Urine Hyaline Casts None/lpf (NONE) Urine Granular Casts None seen (NONE SEEN) Urine Waxy Casts None seen (NONE SEEN) Urine Red Blood Cell Casts None seen (NONE SEEN) Urine White Blood Cell Casts None seen (NONE SEEN) Urine Mucus None seen (None Seen) Urine Trichomonas None seen (NONE SEEN) Urine Yeast None (NONE SEEN) Urinalysis Comment Urine Culture Reflexed Indicated X-Ray Chest Interpretation Chest Xray Interpretation: IMPRESSION: 1. No acute cardiopulmonary disease. Dictated by: Ramu Garcia M.D. on 11/02/2016 at 22:03 View: AP & lat Interpretation / Wet Read by: Interpret - Radiologist Re-Eval/Medical Decision Med Decision/Clinical Course 71-year-old female with shaking chills and indicators of sepsis. She is found to have a urinary tract infection. She was fluid resuscitated with IV fluids and treated with broad-spectrum antibiotics. She had a lactic acidosis that improved with hydration. She will be admitted to the hospital for further care and disposition. Source of Hx: Old records Re-Evaluation/Progress : Time of Eval: 23:20 Patient Status: Condition improved Re-Evaluation/Progress Note: Discussed with patient x-ray and lab results, diagnosis, and plan for admit. Patient agrees with plan for care and all questions were addressed. Consultation : Referral / Consult Name: Annel Manuel DO Consulted With: Hospitalist Call Returned at: 23:35 Meter Inspector: Agrees with eval, Agrees with plan, Accepts admit Note: Requests repeat labs Counseled Regarding: Diagnosis, Lab results, Need for admission Discharge & Departure Shift Change Sign-Out Response to Therapy: Improved Impression: Primary Impression: Urinary tract infection Urinary tract infection type: acute cystitis Hematuria presence: without hematuria Qualified Code: N30.00 - Acute cystitis without hematuria Additional Impression: Sepsis Sepsis type: sepsis due to unspecified organism Qualified Code: A41.9 - Sepsis, unspecified organism Disposition: ADMITTED TO HOSPITAL Discharge Condition All VS Reviewed: Yes Condition: Improved Referrals: NOPCP (PCP) [facility] Scribe Attestation Portions of this note were transcribed by Katie Denise. I, Dr. Mason, personally performed the history, physical exam, and medical decision-making; I reviewed and confirmed the accuracy of the information in the transcribed note. Signed by: Mike Nix, 11/03/2016, 02:05 copies to: [facility] Oracio Mason DO November 02, 2016 21:51 KATIE DENISE November 02, 2016 22:05
--- NOTE | 2016-11-02 22:09 | DRSVH ---
PROCEDURE: X-RAY CHEST, TWO VIEWS ([id number]) INDICATIONS: shaking chills,lactic acidosis, sepsis TECHNIQUE: 2 views of the chest were acquired. COMPARISON: [facility], , CHEST 2VW, 11/08/2014, 12:41. FINDINGS: Surgical changes and devices: None. Lungs and pleura: No pleural effusions or pneumothorax. No acute consolidation. There is a small d ense nodule redemonstrated in the left upper lung zone consistent with a calcified granuloma. Mediastinum: Mediastinal contours are normal. Heart size is within normal size limits. Bones and chest wall: No suspicious bony abnormalities. There is an old healed left rib fracture. Soft tissues appear unremarkable. IMPRESSION: 1. No acute cardiopulmonary disease. Dictated by: Ramu Garcia M.D. on 11/02/2016 at 22:03 Approved by: Ramu Garcia M.D. on 11/02/2016 at 22:07
[2016-11-02] MEDS ORDERED: METF1000 PO (22:38)
[2016-11-02] MEDS ORDERED: ASPI81TA3 PO (22:38)
[2016-11-02] MEDS ORDERED: OXYC1TAB24 PO (22:39)
[2016-11-02] MEDS ORDERED: IBUP200C PO (22:39)
[2016-11-02] MEDS ORDERED: NITR100 PO (22:41)
[2016-11-02 23:11] VITALS: BP 131/59; PULSE 85; RESP 23; O2SAT 97
[2016-11-02] MEDS ORDERED: 0.9% Sodium Chloride 500 ML IV ONE (23:40)
[2016-11-02 23:43] VITALS: BP 133/66; PULSE 80; RESP 24; O2SAT 97
[2016-11-03] VITALS (7 sets, daily range): BP systolic 122–148; BP diastolic 68–86; PULSE 71–95; RESP 16–24; O2SAT 96–99
[2016-11-03] MEDS: Sodium Chloride LOK Flush 10 mL Syringe IVFLUSH SCH ×5 (00:30→15:57)
--- NOTE | 2016-11-03 00:42 | PCM.HPMED ---
Subjective Date of Service November 03, 2016 Primary Provider: Admitting Physician: Annel Manuel DO Primary Care Physician: To Attending Physician: Annel Manuel DO Admit Status: From the Emergency Department Chief Complaint: chills History of Present Illness: 71 year old Citizen Of [place] speaking female with history of DM2, HTN, frequent UTIs, uterovaginal prolapse, and stress incontinence who presented to the ED accompanied by her daughters for complaints of shaking chills onset two days ago. Of note, patient had surgery on 10/24 for her prolapse and incontinence. She had a vaginal hysterectomy, colporapphy with graft, TVT, and uterosacral ligament suspension. She was discharged home with an indwelling varghese catheter after her procedure. Since discharge, patient reports some mild discomfort from the catheter and from the procedure, but was otherwise progressing well. 2 days ago, she noted abrupt chills and rigors. She has not noticed any fevers, and denies any n/v, CP, SOB, abd pain, Flank pain, LEE, rash, or lightheadedness. She has not noticed any change in her urine output. In the ED she was afebrile with a pulse of 80, respiratory rate of 24, blood pressure 130/66 and saturating well on room air CBC was pertinent for hemoglobin of 10.4 and a white count of 10.7 with no shift CMP pertinent for creatinine of 1.25, glucose of 366, and a lactic acid of 3.1 Her UA showed small "blood, positive nitrates, small leukocyte esterase,>50 urine white blood cells Patient was started on IV Zosyn for presumed catheter associated UTI Review of Systems: Complete review systems negative except as stated in the history of present illness Allergies Coded Allergies: No Known Allergies (Verified , 08/24/12) Home Medications Scheduled Amitriptyline (Amitriptyline) 25 Mg Tab 25 MG PO HS Amlodipine (Amlodipine) 5 Mg Tablet 5 MG PO QAM Aspirin Chew (Aspirin Chew) 81 Mg Chew 81 MG PO QAM Cholecalciferol (Vitamin D3) (Vitamin D3) 2,000 Unit Tablet 2,000 UNIT PO QAM Glipizide ER (Glucotrol XL) 5 Mg Tablet 5 MG PO DAILYWM Lisinopril (Lisinopril) 40 Mg Tablet 40 MG PO QAM Metformin (Glucophage) 1,000 Mg Tablet 1,000 MG PO BIDWM Nitrofurantoin Monohyd/M-Cryst (MacroBid) 100 Mg Capsule 100 MG PO DAILY Scheduled PRN Ibuprofen (Ibuprofen) 200 Mg Capsule 200-400 MG PO QID PRN PRN For Pain Ranitidine (Ranitidine) 150 Mg Capsule 150 MG PO BID PRN PRN For Dyspepsia or Heartburn oxyCODONE-Acetaminophen 5-325 mg (oxyCODONE-Acetaminophen 5-325 mg) 1 Each Tablet 1 TAB PO Q4H PRN PRN For Pain Miscellaneous Medications Lovastatin (Lovastatin) 40 Mg Tablet 40 MG PO PMH Dm2 - not on insulin Hypertension Peripheral neuropathy Uterovaginal prolapse Cystocele and rectocele s/p anterior repair with Xenform biologic graft augmentation and posterior repair Iron Deficiency Anemia Surgical History Hernia repair, left leg vein repair Vaginal hysterectomy with Left Salpingoophorectomy. High uterosacral ligament vaginal vault suspension, cystoscopy and enterocele repair TVT retropubic sling and cystoscopy Reports: (x2), Reports: Tubal ligation Family History Fmhx of diabetes Social History Hx Alcohol Use: No Hx Substance Use: No Hx Tobacco Use: No Smoking Status: Never Smoker Living Arrangement: with Family Exam Vital Signs Vital Sign - Last Date Time Temp Pulse Resp B/P Pulse Ox O2 Delivery O2 Flow Rate FiO2 11/02/16 23:43 37.0 80 24 133/66 97 Room Air Intake and Output 11/02/16 11/02/16 11/03/16 Cumulative From/Thru 15:00 23:00 07:00 11/02/16 21:18 - 11/02/16 23:45 Intake Total 1000 ml 500 ml 1500 ml Balance 1000 ml 500 ml 1500 ml Intake IV Total 1000 ml 500 ml 1500 ml Exam General: Well-developed elderly female who appears in no acute distress , alert and orientedx3 HEENT: PERRLA, EOMI, sclerae anicteric, oropharynx moist and pink Neck: Soft, nontender, no JVD noted CV: Regular rate and rhythm with soft systolic murmur, peripheral pulses intact and equal Respiratory: CTA B, no wheezing or rhonchi, normal respiratory effort GI: Soft, mildly distended, nontender, NABS, no rashes noted, no CVA tenderness MSK: Muscle strength grossly intact and equal, no swelling or tender joints, no peripheral edema noted Neuro: Grossly intact, no focal weakness, asymmetric, speaks full and fluent sentences in Citizen [place] : Varghese catheter in place draining straw yellow urine Skin: Warm, dry, intact, no skin tenting noted Lymph: no cervical or supraclavicular lymphadenopathy Psych: Appropriate mood and affect, linear thought process, cooperative Lab and Diagnostics Result Diagram: 11/02/16195311/02/161953 X-Rays, CTs and MRIs Reviewed and agree with rads preliminary read PROCEDURE: X-RAY CHEST, TWO VIEWS ([id number]) IMPRESSION: 1. No acute cardiopulmonary disease. Assessment & Plan 71 year old Citizen Of [place] speaking female with history of DM2, HTN, frequent UTIs, uterovaginal prolapse and stress incontinence s/p repair who presented to the ED accompanied by her daughters for complaints of shaking chills onset two days ago. IGNACIA, POA CR of 1.25 on admission. Last Cr was 1.07 on discharge from her surgery on . No known history of CKD. Continue to monitor and tx as above. CT abd pelvis / renal US to be ordered if not improved with AM labs. Catheter associated urinary tract infection, POA Patient presenting with shaking chills and an abnormal UA is consistent with a urinary tract infection, likely from the indwelling catheter. Patient does not meet the sepsis criteria. Patient's historical microbes have been resistant to piperacillin, so we will plan to switch her IV antibiotics to IV Rocephin for 7-10 days. Will replace current Varghese IV NS 125mls/hr IV Rocephin started 11/03 Urine and Blood cultures pending Consult urology, am team to contact recs appreciated Elevated lactate, POA Lactate of 3.1 on admission We will plan to trend and treat as appropriate Type II diabetes, POA We will hold metformin and glipizide. Glucose [address] We will place on medium dose correction scale A1c pending Essential Hypertension, POA Will continue patient's home meds: Lisinopril and Amlodipine Hyperlipidemia, POA Converted patient's Lovastatin to Atorvastatin Iron Deficiency Anemia, POA Patient reports she has not been taking iron pills lately. Hgb 10.7 on admit Consider supplementation on discharge History of uterovaginal prolapse and stress incontinence status post repair, POA -May need to contact surgeon to evaluate whether catheter can be removed Insomnia, POA Will continue patient's amitriptyline QHS Tylenol prn fever/pain Zofran prn nausea CODE STATUS: Full resuscitation Disposition: Patient is admitted under inpatient status with expected length of stay greater than 2 midnights due to risk of adverse events, decompensation, and medical complexity Pain Evaluation: Adequate Pain Control VTE Prophylaxis: Sub-Q Enoxaparin, SCDs Resuscitation Status: CPR: Attempt Resuscitation Attending Statement The patient was seen and examined together with house staff on 11/03/2016 and I agree with the history, exam and plan as outlined in the note above. Parker Doherty DO November 03, 2016 00:42 Annel Manuel DO November 03, 2016 04:57
[2016-11-03] MEDS ORDERED: Alum-Mag Hydrox-Simeth 30 mL Suspension PO PRN (01:10)
[2016-11-03] MEDS ORDERED: Ondansetron 2 mg/mL 2 mL Inj IVPUSH PRN (01:10)
[2016-11-03] MEDS ORDERED: Renal Dosing Per Pharmacist XX ONE (01:10)
[2016-11-03] MEDS ORDERED: Dextrose 10% 250 ML IV ONE (01:25)
[2016-11-03] MEDS ORDERED: Glucose 40% Oral Gel 15 Gm Tube PO PRN (01:25)
[2016-11-03] MEDS: 0.9% Sodium Chloride 1,000 ML IV SCH ×2 (02:28→10:34)
[2016-11-03] MEDS: cefTRIAXone Inj 2,000 MG in Dextrose 5% Minibag Plus 50 ML IV SCH ×2 (02:57→21:16)
--- NOTE | 2016-11-03 03:20 | NUR ---
ADMIT: Pt. arrived to [facility] from the ED via stretcher at 0155, awake, alert and talking. Was able to ambulate from the stretcher to her bed. Stood on the wt scale with steady steps. Denies pain or nausea on arrival. Has a Wiley catheter from home. States she was in the hospital for surgery on 10/24/16 and was discharged with the Wiley in place. Color of the urine is pale yellow but cloudy and a bit odorous. Denies vaginal d/c. States her last BM was 2 days ago and she is usually constipated. BG=53, rechecked two minutes later BG=57,given OJ and Carl crackers with peanut butter. Pt. was asymptomatic. Admit done per protocol. Pt's daughters at her side. Addendum: 11/03/16 at 0619 by ELMER MITCHELL RN (NELLY) ADDENDUM: BG checked again after taking OJ and Carl crackers with peanut butter. AP=[id number]
[2016-11-03 04:49] LABS: BASOPHILS % (AUTO) 0.3 % (0-3); EOSINOPHILS % (AUTO) 3.2 % (0-5); MONOCYTES % (AUTO) 9.7 % (4-12); Mean Corpuscular Hemoglobin 27.6 pg (27.0-35.0); Mean Corpuscular Volume 85.4 fL (81-100); NEUTROPHILS % (AUTO) 64.4 % (40-74); Platelet Count 355 bil/L (150-400)
[2016-11-03] MEDS: Insulin LISPRO 300 Unit/3 mL Inj SUBQ SCH ×4 (08:00→22:00)
[2016-11-03] MEDS: Heparin 5,000 Unit/mL Inj SUBQ SCH ×2 (08:03→15:56)
[2016-11-03] MEDS: Polyethylene Glycol (PEG) 17 Gm Powder PO SCH (08:03)
--- NOTE | 2016-11-03 16:37 | PCM.PNMED ---
Subjective Date of Service November 03, 2016 Subjective No complaints of fevers chills, rigors pains, dysuria, no chest pain, no dysphagia, no nausea or vomiting Exam Vital Signs Vital Sign - Last Date Time Temp Pulse Resp B/P Pulse Ox O2 Delivery O2 Flow Rate FiO2 11/03/16 12:47 36.9 93 16 142/86 98 Room Air Intake and Output 11/02/16 11/02/16 11/03/16 Cumulative From/Thru 15:00 23:00 07:00 11/02/16 21:18 - 11/03/16 06:17 Intake Total 1000 ml 1268 ml 2268 ml Output Total 2175 ml 2175 ml Balance 1000 ml -907 ml 93 ml Intake Oral 300 ml 300 ml IV Total 1000 ml 968 ml 1968 ml Output Urine Total 2175 ml 2175 ml # Bowel Movements 0 0 Exam Gen.- A+ O 3 no apparent distress. Tiny female lying in bed surrounded by family Eyes- open conjunctiva clear, pupils equal nonicteric ENT- ears normal, nose normal Neck- supple/trach midline CVS-normal rate Lungs-nonlabored GI-flat Musc- moving 4 no obvious deformity Neuro- cranial nerves II through XII intact to gross examination, nonfocal Skin- warm and dry, no rashes/lesions/wounds noted Psych- pleasant and appropriate, Lab and Diagnostics Result Diagram: 11/03/1644411/03/16444 X-Rays, CTs and MRIs Reviewed and agree with rads preliminary read PROCEDURE: X-RAY CHEST, TWO VIEWS ([id number]) IMPRESSION: 1. No acute cardiopulmonary disease. Assessment & Plan 71 year old Palestinian speaking female with history of DM2, HTN, frequent UTIs, uterovaginal prolapse and stress incontinence s/p repair who presented to the ED accompanied by her daughters for complaints of shaking chills onset two days ago. 11/03 spoke with large family via granddaughter who is also some excellent stopperer assembler patient's feeling better. Sounds like she was septic when she arrived and has turned the corner. Stopping IV fluids resuming home medications including iron and blood pressure meds, and oral antihypoglycemic agents. She may be ready go home tomorrow depending on cultures and sensitivities are as yet unavailable. Blood and urine cultures all still pending at this time. UA itself looked very benign other than bacteria. #IGNACIA, POA resolved- CR of 1.25 on admission. Last Cr was 1.07 on discharge from her surgery on 10/24. No known history of CKD. #Catheter associated urinary tract infection, POA #replaced Wiley 11/03 # Rocephin started 11/03 #Elevated lactate, POA -Lactate of 3.1 on admission -Resolved last 1.6 #Type II diabetes, POA -resume metformin and glipizide. Glucose 366 on admission. -We will place on medium dose correction scale -A1c pending 11/03 Essential Hypertension, POA-resume home meds: Lisinopril and Amlodipine Hyperlipidemia, POA- Converted patient's Lovastatin to Atorvastatin #Acute dilutional anemia /Iron Deficiency Anemia, POA- Patient reports she has not been taking iron pills lately. -Hgb 10.7 dropped to 8.8 with hydration -Start iron History of uterovaginal prolapse and stress incontinence status post repair, POA -May need to contact surgeon to evaluate whether catheter can be removed Insomnia, POA Will continue patient's amitriptyline QHS Tylenol prn fever/pain Zofran prn nausea CODE STATUS: Full resuscitation Disposition: Patient is admitted under inpatient status with expected length of stay greater than 2 midnights due to risk of adverse events, decompensation, and medical complexity VTE Prophylaxis: Sub-Q Enoxaparin, SCDs Resuscitation Status: CPR: Attempt Resuscitation Fran Ritchie MD November 03, 2016 16:37
--- NOTE | 2016-11-03 16:39 | NUR ---
Social Work- Brief Note/ Readiness for Discharge Data: EMR reviewed. Pt is a 71 year old Congolese Speaking female admitted 11/02/16 for UTI with sepsis per H&P. Pt is a readmit, discharged 24 OCTOBER with indwelling varghese catheter after uterovaginal prolapse repair. Pt's insurance is [employer] and [facility] supplement. Pt has no listed PCP. Per chart review, pt resides in [place] with her where she is independent at baseline. Pt has supportive family. Pt's blood and urine cultures are pending. Pt is likely to discharge home with family, no anticipated discharge needs. SW will continue to follow. Assessment: Pt who is independent at base. Plan: Pt's blood and urine cultures are pending. Pt is likely to discharge home with family, no anticipated discharge needs. SW will continue to follow. ALIX Wayne
--- NOTE | 2016-11-03 18:12 | NUR ---
Mentation Patient is alert and oriented X3. multiple family members at bed side this shift. Dr. Weinberg spoke to the family/patient. new orders for metformin, Iron, Amlodipine, and discontinue IV Normal saline. Patient tolerating well PO fluids. Meals at bed side independent after set up. C/o pain to perineum 12/01. PRN Tylenol given with effective results 08/31. Blood sugar before breakfast 96, before lunch 89, before dinner 211. Insulin given as ordered. Wiley draining clear yellow urine and patent. Dressing clean dry and intact to peripheral IV site. no sign and symptoms of infection noted. BP 148/76,pulse 95, anti hypertensives given as ordered. Independent ambulation with out difficulty. Stable mood. Call light with in reach for safety. Continue to monitor vital signs, pain, and safety.
--- NOTE | 2016-11-03 23:22 | NUR ---
PAIN/HYGIENE: Pt. requested PO Tylenol for bladder pain, helpful. Also was able to take a shower at HS. Had lots of family and friends visiting this evening. Pt's is spending the night in with ptJoan camacho. A & O, vss. On going care.
[2016-11-04] MEDS: Sodium Chloride LOK Flush 10 mL Syringe IVFLUSH SCH ×6 (00:30→16:44)
[2016-11-04] MEDS: Heparin 5,000 Unit/mL Inj SUBQ SCH ×3 (00:43→16:41)
[2016-11-04 05:07] VITALS: BP 144/78; PULSE 85; RESP 16; O2SAT 97
[2016-11-04 05:33] LABS: BASOPHILS % (AUTO) 0.6 % (0-3); EOSINOPHILS % (AUTO) 3.5 % (0-5); MONOCYTES % (AUTO) 8.1 % (4-12); Mean Corpuscular Hemoglobin 27.3 pg (27.0-35.0); Mean Corpuscular Volume 85.7 fL (81-100); NEUTROPHILS % (AUTO) 56.1 % (40-74); Platelet Count 393 bil/L (150-400)
[2016-11-04] MEDS: Polyethylene Glycol (PEG) 17 Gm Powder PO SCH (07:51)
[2016-11-04] MEDS: Insulin LISPRO 300 Unit/3 mL Inj SUBQ SCH ×4 (07:52→22:00)
[2016-11-04] MEDS: glipiZIDE 2.5 mg ER24 Tablet PO SCH (07:54)
[2016-11-04 08:00] VITALS: BP 137/72; PULSE 78; RESP 16; O2SAT 99
--- NOTE | 2016-11-04 10:21 | NUR ---
Perineum pain Patient is alert and orientedX3. C/o pain 4/10 to perineum, PRN Tylenol given as ordered. Dr. Preston at bed side and speaking to the patient and family using video interpreting.
--- NOTE | 2016-11-04 10:56 | NUR ---
Social Work- Initial Assessment Data: See Initial Assessment. Pt is a 71 year old Citizen Of [place] Speaking female admitted 11/02/16 for UTI with sepsis per H&P. Pt's insurance is [employer] and [employer]. Pt's PCP is Dougie Sung MD at the [facility]. EQUIPMENT WASHER spoke with pt and family today at bedside using language line services to complete initial assessment. Pt resides in [place] with her Cristino Plummer [phone] and her daughter where she remains independent at baseline. Pt states that her daughters home has steps, but she will be discharging to another daughters home where there are no steps. Pt uses no DME at baseline, does not drive. Pt has no HH or SNF history. Pt has no LTC or VA benefits. Pt's family is very supportive, there were many family members at patient's bedside. Pt has no listed DPOA, is aware of the 5 wishes document and requested more information about DPOA. SW provided this. Pt to discharge home to daughters home via POV, no discharge needs identified at this time. SW will continue to follow. Assessment: Pt who is independent at baseline. Plan: Pt to discharge home to daughters home via POV, no discharge needs identified at this time. SW will continue to follow. ALIX Wayne Addendum: 11/04/16 at 1103 by MARCO HUNTER SS Amended: Links added.
[2016-11-04 11:05] VITALS: BP 147/74; PULSE 78; RESP 18; O2SAT 99
--- NOTE | 2016-11-04 11:42 | PCM.PNMED ---
Subjective Date of Service November 04, 2016 Subjective pt was seen at the bed side via video [employer] division manager denied n/v, eating well, stronger, able to ambulate UCX still in progress Exam Vital Signs Vital Sign - Last Date Time Temp Pulse Resp B/P Pulse Ox O2 Delivery O2 Flow Rate FiO2 11/04/16 11:05 36.9 78 18 147/74 99 Room Air Intake and Output 11/03/16 11/03/16 11/04/16 Cumulative From/Thru 15:00 23:00 07:00 11/02/16 21:18 - 11/04/16 05:07 Intake Total 2223 ml 800 ml 5291 ml Output Total 2150 ml 2050 ml 6375 ml Balance 73 ml -1250 ml -1084 ml Intake Oral 880 ml 800 ml 1980 ml IV Total 1343 ml 3311 ml Output Urine Total 2150 ml 2050 ml 6375 ml # Bowel Movements 0 0 Exam NAD, comfortably laying down on the bed no JVD, MMM, no LAD RRR, nl s1, s2 no mrg CTAB, no w,c S,ND,NT,normoactive BS+ warm, no edema, pulses 2/2 IVs and Medications Medications Reviewed: Medications were reviewed in detail Lab and Diagnostics Result Diagram: 11/04/16 0450 11/04/16 0450 X-Rays, CTs and MRIs Reviewed and agree with rads preliminary read PROCEDURE: X-RAY CHEST, TWO VIEWS ([id number]) IMPRESSION: 1. No acute cardiopulmonary disease. Assessment & Plan 71 year old Estonian speaking female with history of DM2, HTN, frequent UTIs, uterovaginal prolapse and stress incontinence s/p repair who presented to the ED accompanied by her daughters for complaints of shaking chills onset two days ago. 11/03 spoke with large family via granddaughter who is also some excellent design engineer patient's feeling better. Sounds like she was septic when she arrived and has turned the corner. Stopping IV fluids resuming home medications including iron and blood pressure meds, and oral antihypoglycemic agents. She may be ready go home tomorrow depending on cultures and sensitivities are as yet unavailable. Blood and urine cultures all still pending at this time. UA itself looked very benign other than bacteria. acute, active #Catheter associated urinary tract infection, POA, s/w recent surgery of uterovaginal prolapse and stress incontinence status post repair, prelim culture showed GNR -replaced Wiley 11/03, will keep upon d/c, pt has [facility] follow up on Saturday -Rocephin started 11/03, clinically stable, -awaits final UCX, will switch to oral, of note, pt took Macrobid for 7days post op, still developed UTI. chronic, stable, resolved #IGNACIA, POA resolved- CR of 1.25 on admission. Last Cr was 1.07 on discharge from her surgery on 10/24. No known history of CKD. #Elevated lactate, in the setting of POA, Lactate of 3.1 on admission, Resolved last 1.6 #Type II diabetes, resume metformin and glipizide. Glucose 366 on admission, on medium dose correction scale, A1c pending 11/03 #Essential Hypertension, POA-resume home meds: Lisinopril and Amlodipine #Hyperlipidemia, POA- Converted patient's Lovastatin to Atorvastatin #Acute dilutional anemia /Iron Deficiency Anemia, POA- Patient reports she has not been taking iron pills lately. -Hgb 10.7 dropped to 8.8 with hydration -Start iron Insomnia, POA Will continue patient's amitriptyline QHS Tylenol prn fever/pain Zofran prn nausea CODE STATUS: Full resuscitation Disposition: home likely tomorrow VTE Prophylaxis: Sub-Q Enoxaparin, SCDs Resuscitation Status: CPR: Attempt Resuscitation Time spent 35min Robyn Preston MD November 04, 2016 11:42
--- NOTE | 2016-11-04 13:20 | NUR ---
English Copy of JANE signed. Marianela Cherry, WEAVER NEEDLE [employer]OM
[2016-11-04 20:30] VITALS: BP 147/73; PULSE 78; RESP 16; O2SAT 98
[2016-11-04] MEDS: cefTRIAXone Inj 2,000 MG in Dextrose 5% Minibag Plus 50 ML IV SCH (21:01)
[2016-11-05] MEDS: Sodium Chloride LOK Flush 10 mL Syringe IVFLUSH SCH ×4 (00:30→08:40)
[2016-11-05] MEDS: Heparin 5,000 Unit/mL Inj SUBQ SCH ×2 (00:38→08:37)
--- NOTE | 2016-11-05 02:56 | NUR ---
PAIN/BG/ACTIVITY: Pt. taking po Tylenol every 4 hr for Perinium pain. Wiley catheter still in place. GB at 2106, HS=50, At 2110 BG=53 Pt. asymptomatic. Given OJ and half PBJ martinez. At 2244 BG=49 asymptomatic, given another half cup of OJ and half PBJ martinez. At 0 BG=54, At 2315 BG=70, At 0042 JP=[id number]. Sent P[employer] page message to hospitalist with BRIANA reg. above. Pt. also stated she did have a good dinner tonight, ate everything and does not understand why her BGs are low. She has been completely asymptomatic. Resting in bed this shift. On going care.
[2016-11-05 05:46] VITALS: BP 126/69; PULSE 73; RESP 16; O2SAT 97
[2016-11-05 06:06] LABS: BASOPHILS % (AUTO) 0.3 % (0-3); EOSINOPHILS % (AUTO) 3.6 % (0-5); MONOCYTES % (AUTO) 8.1 % (4-12); Mean Corpuscular Hemoglobin 27.7 pg (27.0-35.0); Mean Corpuscular Volume 84.8 fL (81-100); NEUTROPHILS % (AUTO) 57.4 % (40-74); Platelet Count 437 bil/L (150-400)
[2016-11-05 06:12] LABS: Magnesium 1.7 mg/dL (1.6-2.6)
[2016-11-05] MEDS ORDERED: CEFU250T82 PO (07:34)
[2016-11-05] MEDS: Insulin LISPRO 300 Unit/3 mL Inj SUBQ SCH (07:59)
[2016-11-05] MEDS: Polyethylene Glycol (PEG) 17 Gm Powder PO SCH (08:39)
[2016-11-05] MEDS: glipiZIDE 2.5 mg ER24 Tablet PO SCH (08:46)
--- NOTE | 2016-11-05 09:15 | PCM.DIMED ---
Discharge Instructions Date of Service November 05, 2016 Dates of Hospitalization November 02, 2016 at 23:18 Discharge Diagnosis Discharge Diagnosis urinary tract infection, complicated by indwelling varghese catheter, s/p uterovaginal prolapse and stress incontinence status post repair Medication Instructions take Cefuroxime 250mg twice a day for 5more days Diet Heart Healthy, Diabetic Activity No restrictions Call your provider Fever or Chills Patient Instructions You were hospitalized with nausea, weakness, found to have urine infection. It' s likely that it was developed in condition where you had urinary catheter and surgery. You were treated appropriately with antibiotics. Please follow up with your surgeon which was scheduled for tomorrow. Follow-up with PCP in: 2 weeks Robyn Preston MD November 05, 2016 09:14
--- NOTE | 2016-11-05 10:10 | NUR ---
Social Work: Readiness for Discharge D: EMR reviewed. Pt is on day 3 of hospitalization. Pt is a 71 year old Bolivian Speaking female admitted 11/02/16 for UTI with sepsis per H&P. Pt is a readmit, discharged 24 OCTOBER with indwelling varghese catheter after uterovaginal prolapse repair. Pt to dischare home on POABX and catheter. Pt is likely to discharge home with family today, no anticipated discharge needs. SW will continue to follow. Assessment: Pt who is independent [place] base. Plan: Pt is likely to discharge home with family today, no anticipated discharge needs. SW will continue to follow. ALIX Wilson
--- NOTE | 2016-11-05 11:08 | NUR ---
Social Work: Discharge D: EMR reviewed. Pt is on day 3 of hospitalization. Pt is a 71 year old Romanian Speaking female admitted 11/02/16 for UTI with sepsis per H&P. Pt is a readmit, discharged 10/24/16 with indwelling varghese catheter after uterovaginal prolapse repair. Pt to discharge home on POABX and catheter. Pt to discharge home with family today; no anticipated discharge needs. SW will continue to follow. Assessment: Pt who is independent at baseline. Plan: Pt to discharge home with family today; no anticipated discharge needs. SW will continue to follow. ALIX Wilson
--- NOTE | 2016-11-05 12:03 | NUR ---
Discharge Patient ambulated home with family via personal vehicle. Patient got dressed independently and was ambulating independently in room and in hallway. Mild pain relieved from tylenol. IV discontinued with catheter intact and patient belongings went home with patient. Patient and family was educated on discharge paperwork and new prescription. Instructed to follow up with surgeon as planned for tomorrow and primary care provider in two weeks.
--- NOTE | 2016-11-05 14:42 | PCM.DC.MED ---
Discharge Summary Date of Service November 05, 2016 Dates of Hospitalization Date of Hospital Admission November 02, 2016 at 23:18 Date of Discharge: November 05, 2016 Providers: Admitting Physician: Annel Manuel DO Primary Care Physician: Dougie Sung MD Attending Physician: Annel Manuel DO Diagnosis at Time of Discharge Diagnosis at Time of Discharge acute dx urinary tract infection, complicated by indwelling varghese catheter, s/p uterovaginal prolapse and stress incontinence status post repair mild IGNACIA, likely in the setting of UTI, resolved with IVF. lactic acidosis, due to acute infection, resolved as infection cleared. chronic dx #Type II diabetes, #Essential Hypertension #Hyperlipidemia, #Acute dilutional anemia /Iron Deficiency Anemia Insomnia Procedures XRay, CTs & MRIs Reviewed and agree with rads preliminary read PROCEDURE: X-RAY CHEST, TWO VIEWS ([id number]) IMPRESSION: 1. No acute cardiopulmonary disease. Brief History HPI obtained by on 11/02 71 year old Eritrean speaking female with history of DM2, HTN, frequent UTIs, uterovaginal prolapse, and stress incontinence who presented to the ED accompanied by her daughters for complaints of shaking chills onset two days ago. Of note, patient had surgery on 10/24 for her prolapse and incontinence. She had a vaginal hysterectomy, colporapphy with graft, TVT, and uterosacral ligament suspension. She was discharged home with an indwelling varghese catheter after her procedure. Since discharge, patient reports some mild discomfort from the catheter and from the procedure, but was otherwise progressing well. 2 days ago, she noted abrupt chills and rigors. She has not noticed any fevers, and denies any n/v, CP, SOB, abd pain, Flank pain, LEE, rash, or lightheadedness. She has not noticed any change in her urine output. In the ED she was afebrile with a pulse of 80, respiratory rate of 24, blood pressure 130/66 and saturating well on room air CBC was pertinent for hemoglobin of 10.4 and a white count of 10.7 with no shift CMP pertinent for creatinine of 1.25, glucose of 366, and a lactic acid of 3.1 Her UA showed small "blood, positive nitrates, small leukocyte esterase,>50 urine white blood cells Patient was started on IV Zosyn for presumed catheter associated UTI Hospital Course 71 year old Eritrean speaking female with history of DM2, HTN, frequent UTIs, uterovaginal prolapse and stress incontinence s/p repair who presented to the ED accompanied by her daughters for complaints of shaking chills onset two days ago. 11/03 spoke with large family via granddaughter who is also some excellent parts identifier patient's feeling better. Sounds like she was septic when she arrived and has turned the corner. Stopping IV fluids resuming home medications including iron and blood pressure meds, and oral antihypoglycemic agents. She may be ready go home tomorrow depending on cultures and sensitivities are as yet unavailable. Blood and urine cultures all still pending at this time. UA itself looked very benign other than bacteria. acute dx #Catheter associated urinary tract infection, s/p recent surgery of uterovaginal prolapse and stress incontinence status post repair, prelim culture showed GNR. pt was treated for presumed UTI with Rocephin. Later UCX showed E.coli resistant to quinolone. Patient remained stable on abx, HD stable. symptoms were resolved. Varghese cath was replaced on 11/03, Plan is to continue Cefuroxime to finish 10days course and follow up with [facility] tomorrow upon d/c. #IGNACIA, likely in the setting of UTI, resolved with IVF. #lactic acidosis, due to acute infection, resolved as infection cleared. chronic dx #Type II diabetes, resumed metformin and glipizide. pt had one episode of hypoglycemia 40s. patient was strongly encouraged to monitor home glc, possibly d/c glipizide if hypoglycemia happens frequently. #Essential Hypertensionr, resumed home Lisinopril and Amlodipine #Hyperlipidemia, POA- Converted patient's Lovastatin to Atorvastatin #Acute dilutional anemia /Iron Deficiency Anemia, stable Insomnia, continue patient's amitriptyline QHS Exam Vital Signs (Last) Date Time Temp Pulse Resp B/P Pulse Ox O2 Delivery O2 Flow Rate FiO2 11/05/16 05:46 36.4 73 16 126/69 97 Room Air Exam NAD, comfortably laying down on the bed no JVD, MMM, no LAD RRR, nl s1, s2 no mrg CTAB, no w,c S,ND,NT,normoactive BS+ warm, no edema, pulses 2/2 Test 11/02/16 19:54 11/02/16 21:13 11/03/16 07:53 11/05/16 04:43 Lipase 48U/L (13-60) Procalcitonin 0.07ng/mL (0.00-0.08) Urine Color Yellow (YELLOW) Urine Appearance Slightly cloudy Urine pH 6.0 (5.0-8.0) Urine Specific [place] 1.028 (1.003-1.035) Urine Protein Tracemg/dL (NEG,TRACE) Urine Glucose (UA) >1000mg/dL (NEGATIVE) Urine Ketones Negativemg/dL (NEGATIVE) Urine Occult Blood Small (NEGATIVE) Urine Nitrite Positive (NEGATIVE) Urine Bilirubin Negative (NEGATIVE) Urine Urobilinogen Normalmg/dL (NORMAL) Urine Leukocyte Esterase Small (NEGATIVE) Urine RBC 3-10/hpf (0-2) Urine WBC >50/hpf (0-5) Urine Epithelial Cells Occasional/hpf (NONE-MOD) Urine Crystals None seen (NONE SEEN) Urine Bacteria Many/hpf (NONE-FEW) Urine Hyaline Casts None/lpf (NONE) Urine Granular Casts None seen (NONE SEEN) Urine Waxy Casts None seen (NONE SEEN) Urine Red Blood Cell Casts None seen (NONE SEEN) Urine White Blood Cell Casts None seen (NONE SEEN) Urine Mucus None seen (None Seen) Urine Trichomonas None seen (NONE SEEN) Urine Yeast None (NONE SEEN) Urinalysis Comment Urine Culture Reflexed Indicated Lactic Acid Level 1.8mmol/L (0.4-2.0) White Blood Count 9.7th/mm3 (3.8-10.1) Red Blood Count 3.36mil/mm3 (3.90-5.20) Hemoglobin 9.3g/dL (12.0-15.6) Hematocrit 28.5% (35.0-46.0) Mean Corpuscular Volume 84.8fL (81-100) Mean Corpuscular Hemoglobin 27.7pg (27.0-35.0) Mean Corpuscular Hemoglobin Concent 32.6% (32.0-37.0) Red Cell Distribution Width 12.8% (12.3-15.4) Platelet Count 437bil/L (150-400) Neutrophils (%) (Auto) 57.4% (40-74) Lymphocytes (%) (Auto) 30.4% (14-46) Monocytes (%) (Auto) 8.1% (4-12) Eosinophils (%) (Auto) 3.6% (0-5) Basophils (%) (Auto) 0.3% (0-3) Sodium Level 143mEq/L (134-144) Potassium Level 3.9mEq/L (3.5-5.2) Chloride Level 104mEq/L (97-108) Carbon Dioxide Level 23mmol/L (18-29) Blood Urea Nitrogen 22mg/dL (8-27) Creatinine 0.79mg/dL (0.57-1.00) Estimat Glomerular Filtration Rate 103mL/min (>59) Glucose Level 96mg/dL (60-99) Calcium Level 8.8mg/dL (8.5-10.1) Phosphorus Level 4.0mg/dL (2.5-4.9) Magnesium Level 1.7mg/dL (1.6-2.6) Total Bilirubin 0.2mg/dL (0.0-1.2) Aspartate Amino Transf (AST/SGOT) 12U/L (0-50) Alanine Aminotransferase (ALT/SGPT) 12U/L (0-32) Alkaline Phosphatase 80U/L (25-165) Total Protein 6.1g/dL (6.4-8.4) Albumin 3.5g/dL (3.4-5.0) Discharge Medications Discharge Medications Amitriptyline (Amitriptyline) 25 Mg Tab 25 MG PO HS (Reported) Amlodipine (Amlodipine) 5 Mg Tablet 5 MG PO QAM (Reported) Aspirin Chew (Aspirin Chew) 81 Mg Chew 81 MG PO QAM (Reported) Cefuroxime Axetil (Cefuroxime) 250 Mg Tablet 250 MG PO BID Prescribed by: ROBYN BAIRD MD Cholecalciferol (Vitamin D3) (Vitamin D3) 2,000 Unit Tablet 2,000 UNIT PO QAM ( Reported) Glipizide ER (Glucotrol XL) 5 Mg Tablet 5 MG PO DAILYWM (Reported) Lisinopril (Lisinopril) 40 Mg Tablet 40 MG PO QAM (Reported) Metformin (Glucophage) 1,000 Mg Tablet 1,000 MG PO BIDWM (Reported) As needed Ibuprofen (Ibuprofen) 200 Mg Capsule 200-400 MG PO QID PRN PRN For Pain ( Reported) Ranitidine (Ranitidine) 150 Mg Capsule 150 MG PO BID PRN PRN For Dyspepsia or Heartburn (Reported) oxyCODONE-Acetaminophen 5-325 mg (oxyCODONE-Acetaminophen 5-325 mg) 1 Each Tablet 1 TAB PO Q4H PRN PRN For Pain (Reported) Miscellaneous Medications Lovastatin (Lovastatin) 40 Mg Tablet 40 MG PO (Reported) Additional med instructions take Cefuroxime 250mg twice a day for 5more days Followup Plan Disposition: home Discharge Diet: Heart Healthy, Diabetic Discharge Activity: No restrictions Patient Instructions You were hospitalized with nausea, weakness, found to have urine infection. It' s likely that it was developed in condition where you had urinary catheter and surgery. You were treated appropriately with antibiotics. Please follow up with your surgeon which was scheduled for tomorrow. Follow-up with PCP in: 2 weeks Time spent 65min Robyn Baird MD November 05, 2016 14:42
== END 2016-11-05 11:55 | disposition home or self-care (01) | DRG 699 ==
LOC: SED 18:53 → OSC 23:18
PROVIDERS: ADMIT Internal Medicine; ATTEND Internal Medicine
DX: T83.511A Infection and inflammatory reaction due to indwelling urethral catheter, initial encounter (principal); N17.9 Acute kidney failure, unspecified; E87.2 Acidosis; N39.0 Urinary tract infection, site not specified; Z79.82 Long term (current) use of aspirin; Z79.84 Long term (current) use of oral hypoglycemic drugs; E11.9 Type 2 diabetes mellitus without complications; I10 Essential (primary) hypertension; E78.5 Hyperlipidemia, unspecified; D50.9 Iron deficiency anemia, unspecified; G47.00 Insomnia, unspecified; N39.3 Stress incontinence (female) (male); B96.20 Unspecified Escherichia coli [E. coli] as the cause of diseases classified elsewhere